=== PATIENT | female | born 1985 | race Caucasian/White ===

== ENCOUNTER 2021-01-09 17:00 | Emergency (ER) | payer OTHER ==
[2021-01-09] MEDS ORDERED: CYCLOBENZAPRINE5 MG PO (22:11)
[2021-01-09] MEDS ORDERED: NAPROSYN500 MG PO (22:11)
[2021-01-09] MEDS ORDERED: MOBIC15 MG PO (22:33)
== END 2021-01-09 22:44 | disposition home or self-care (01) ==
LOC: ER1 17:00
DX: S16.1XXA Strain of muscle, fascia and tendon at neck level, initial encounter (principal); S39.012A Strain of muscle, fascia and tendon of lower back, initial encounter; S29.012A Strain of muscle and tendon of back wall of thorax, initial encounter; M25.561 Pain in right knee; M25.551 Pain in right hip; M25.552 Pain in left hip; F17.200 Nicotine dependence, unspecified, uncomplicated; V49.50XA Passenger injured in collision with unspecified motor vehicles in traffic accident, initial encounter; Y92.410 Unspecified street and highway as the place of occurrence of the external cause
CPT/HCPCS: 72125; 72128; 72131; 72170; 73562; 96372; 99284; J1885; J2930